=== PATIENT | male | born 1995 | race Caucasian/White ===

== ENCOUNTER 2016-07-11 13:28 | Emergency (ER) | payer BC ==
--- NOTE | ~2016-07-11 | CR72 ---
[facility] A Service of [facility] & [facility] / [facility] RADIOLOGY TEXT RESULTS PATIENT: YANELI ZAYAS LOCATION: [facility] : [birth year] UNIT #: [id number] AGE: [address]: Philipp Bell MD SEX: M ORDER DR: [id number] [facility] [address] [place], [place] [address] [id number] E MR#: [id number] Acc #: [id number] NAME: YANELI ZAYAS : 1995 SEX: M STUDY DATE/TIME: 07/11/2016 13:35 UNIT: [facility] ROOM: STUDY DESCRIPTION: CR Chest Single View Portable Attending Physician: Philipp Bell M.D. Ordering Physician: Ed Doctor [id number] [facility] Primary Care Physician: Adiel Silvestre M.D. MEDICAL IMAGING REPORT This report is preliminary unless electronic signature is present EXAM Portable chest. HISTORY 20-year-old with complaint of food caught in throat today and coughing up blood. COMPARISON None. FINDINGS Single upright portable view demonstrates normal cardiac, mediastinal and hilar contours. No dilatation of the esophagus is seen. There is no pneumomediastinum or pneumothorax. The lungs are clear. IMPRESSION Normal upright portable chest. Dictated by... Brianna Montes M.D. THIS IS AN ELECTRONICALLY VERIFIED REPORT Brianna Montes M.D. at 07/11/2016 6:59 PM Chloé TD: 07/11/2016 17:26 JOB #: [id number] MEDICAL IMAGING REPORT COPY
[~2016-07-11 13:28] MED LIST: NO MEDICATIONS
== END 2016-07-11 15:00 | disposition home or self-care (01) ==
LOC: CED 13:28
DX: R13.10 Dysphagia, unspecified (principal)
CPT/HCPCS: 71010; 99283